=== PATIENT | female | born 1960 | race Caucasian/White ===

== ENCOUNTER 2023-05-02 10:27 | Outpatient (RCR) | payer MEDICARE, SELFPAY | END 2023-05-26 15:04 | disposition home or self-care (01) | LOC: PT 10:27 | PROVIDERS: PCP Family Medicine | DX: M76.31 Iliotibial band syndrome, right leg (principal); M17.11 Unilateral primary osteoarthritis, right knee; S83.281D Other tear of lateral meniscus, current injury, right knee, subsequent encounter; M25.561 Pain in right knee | CPT/HCPCS: 97035; 97110; 97140; 97161 ==

== ENCOUNTER 2023-06-19 10:51 | Outpatient (RCR) | payer MEDICARE, SELFPAY | END 2023-07-16 09:00 | disposition home or self-care (01) | LOC: PT 10:51 | PROVIDERS: PCP Family Medicine; Visit Provider Orthopaedic Surgery | DX: Z98.890 Other specified postprocedural states (principal) | CPT/HCPCS: 97110; 97112; 97116; 97140; 97161 ==

== ENCOUNTER 2023-09-29 12:55 | Emergency (ER) | payer MEDICARE, SELFPAY ==
[2023-09-29 13:02] VITALS: BP 153/74; PULSE 63; RESP 18; TEMP 36.5; O2SAT 100; BMI 22.7
--- NOTE | 2023-09-29 13:27 | ED_ITS ---
Documented by User: Ruthy Riri 09/29/23 14:10 HPI - General Adult General Chief complaint: Headache Stated complaint: HEADACHE Time Seen by Provider: 09/29/23 13:20 Source: patient Mode of arrival: walk-in Limitations: no limitations History of Present Illness HPI narrative: 63-year-old female presents with chief complaint of migraine headache. States she has had a history of headaches in the past. She has not had a migraine headache for over a year she states. She states she has pain and photophobia noted. Also complains of nausea vomiting. She has pain behind the right eye. She denies worst headache of her life sudden onset or thunderclap sensation. Patient does not appear toxic. She has no focal neurological deficits on initial exam Related Data Home Medications Medication Instructions Recorded Confirmed fluoxetine 40 mg capsule 40 mg PO DAILY 09/29/23 09/29/23 levothyroxine 50 mcg tablet 50 mcg PO DAILY 09/29/23 09/29/23 xvitql-cigjxlzf-lcxaixd cap PO DAILY 09/29/23 36,000-114,000-180,000 unit capsule,delay rel (Creon) Allergies Allergy/AdvReac Type Severity Reaction Status Date / Time No Known Drug Allergies Allergy Verified 09/29/23 13:02 Review of Systems ROS Narrative All Systems are negative except as noted/marked. Exam Narrative Exam Narrative: Nurses note and vital signs reviewed and patient is not hypoxic. General: The patient appears uncomfortable and in no apparent distress. Patient is resting comfortably on cart.wearing sunglasses due to photophobia Skin: Warm, dry, no pallor noted. There is no rash noted. Head: Normocephalic, atraumatic Eye: Normal conjunctiva, no drainage, EOMI. PERRL Ears, Nose, Mouth, and Throat: oral mucosa is moist. Nares patent. Mouth without vesicles. Ear canals patent. Tm's without Erythema Cardiovascular: Regular Rate and Rhythm Respiratory: Patient is in no distress, no accessory muscle use, lungs are clear to auscultation, no wheezing, rales or rhonchi Back: non-tender, no CVA tenderness bilaterally to percussion. GI: Normal bowel sounds, no tenderness to palpation, no masses appreciated. No rebound, guarding, or rigidity noted. Musculoskeletal: The patient has no evidence of calf tenderness, no pitting edema, symmetrical pulses noted bilaterally Neurological: A&O x4, normal speech Psychiatric: Cooperative Constitutional Vital Signs, click to edit/add: Last Vital Signs Temp 97.7 F 09/29/23 13:02 Pulse 63 09/29/23 13:02 Resp 18 09/29/23 13:02 BP 153/74 H 09/29/23 13:02 Pulse Ox 100 09/29/23 13:02 O2 Del Method Room Air 09/29/23 13:02 Course Vital Signs Vital signs: Vital Signs Temperature 97.7 F 09/29/23 13:02 Pulse Rate 63 09/29/23 13:02 Respiratory Rate 18 09/29/23 13:02 Blood Pressure 153/74 H 09/29/23 13:02 Pulse Oximetry 100 09/29/23 13:02 Oxygen Delivery Method Room Air 09/29/23 13:02 Temperature 97.7 F 09/29/23 13:02 Pulse Rate 63 09/29/23 13:02 Respiratory Rate 18 09/29/23 13:02 Blood Pressure 153/74 H 09/29/23 13:02 Pulse Oximetry 100 09/29/23 13:02 Oxygen Delivery Method Room Air 09/29/23 13:02 Medical Decision Making [facility] Narrative Medical decision making narrative: 63-year-old female presenting here with chief complaint migraine headache. Upon arrival she had IV established. Patient was given half a liter normal saline, Toradol, Decadron and Phenergan. Patient states she feels 100% better she feels comfortable going home.Normally takes ibuprofen at home for her headaches and she does not need any medications Differential Diagnosis Differential Diagnosis: headache, migraine Medical Records Medical records reviewed: Yes I reviewed the patient's medical records Lab Data Lab results reviewed: Yes I reviewed the patient's lab results Discharge Plan Discharge Stand Alone Forms: Portal Instructions Chief Complaint: Headache Clinical Impression: Migraine Patient Disposition: Home, Self-Care Time of Disposition Decision: 14:08 Condition: Good Prescriptions / Home Meds: No Action levothyroxine 50 mcg tablet 50 mcg PO DAILY Creon 36,000-114,000- 180,000 unit capsule,delayed release(DR/EC) PO DAILY fluoxetine 40 mg capsule 40 mg PO DAILY Instructions: Migraine Headache (ED) Referrals: Amina Viera MD [Primary Care Provider] - 1 week Discharge Date/Time: 09/29/23 14:18 Documented by User: Colton Donovan MD 09/29/23 17:16 HPI - General Adult General Chief complaint: Headache Stated complaint: HEADACHE Time Seen by Provider: 09/29/23 13:20 Related Data Home Medications Medication Instructions Recorded Confirmed fluoxetine 40 mg capsule 40 mg PO DAILY 09/29/23 09/29/23 levothyroxine 50 mcg tablet 50 mcg PO DAILY 09/29/23 09/29/23 bvfgiv-uzhnqlai-drgwlku cap PO DAILY 09/29/23 36,000-114,000-180,000 unit capsule,delay rel (Creon) Allergies Allergy/AdvReac Type Severity Reaction Status Date / Time No Known Drug Allergies Allergy Verified 09/29/23 13:02 Exam Constitutional Vital Signs, click to edit/add: Last Vital Signs Temp 97.7 F 09/29/23 13:02 Pulse 63 09/29/23 13:02 Resp 18 09/29/23 13:02 BP 153/74 H 09/29/23 13:02 Pulse Ox 100 09/29/23 13:02 O2 Del Method Room Air 09/29/23 13:02 Course Vital Signs Vital signs: Vital Signs Temperature 97.7 F 09/29/23 13:02 Pulse Rate 63 09/29/23 13:02 Respiratory Rate 18 09/29/23 13:02 Blood Pressure 153/74 H 09/29/23 13:02 Pulse Oximetry 100 09/29/23 13:02 Oxygen Delivery Method Room Air 09/29/23 13:02 Temperature 97.7 F 09/29/23 13:02 Pulse Rate 63 09/29/23 13:02 Respiratory Rate 18 09/29/23 13:02 Blood Pressure 153/74 H 09/29/23 13:02 Pulse Oximetry 100 09/29/23 13:02 Oxygen Delivery Method Room Air 09/29/23 13:02 Medical Decision Making MDM Narrative Medical decision making narrative: 63-year-old female presenting here with chief complaint migraine headache. Upon arrival she had IV established. Patient was given half a liter normal saline, Toradol, Decadron and Phenergan. Patient states she feels 100% better she feels comfortable going home.Normally takes ibuprofen at home for her headaches and she does not need any medications. I, Dr Donovan, have reviewed the above progress note and course of action in the ER; agree with the above. I have gone over history and physical, and discussed disposition and treatment plan with the patient. Patient's headache was not the worse headache of her life, not sudden onset, not thunderclap in nature. Discharge Plan Discharge Stand Alone Forms: Portal Instructions Chief Complaint: Headache Clinical Impression: Migraine Patient Disposition: Home, Self-Care Time of Disposition Decision: 14:08 Condition: Good Prescriptions / Home Meds: No Action levothyroxine 50 mcg tablet 50 mcg PO DAILY Creon 36,000-114,000- 180,000 unit capsule,delayed release(DR/EC) PO DAILY fluoxetine 40 mg capsule 40 mg PO DAILY Instructions: Migraine Headache (ED) Referrals: Amina Viera MD [Primary Care Provider] - 1 week Discharge Date/Time: 09/29/23 14:18
[2023-09-29] MEDS: DEXAMETHASONE SOD PHOS 10 MG/ML VIAL IV (13:37)
[2023-09-29] MEDS: 0.9 % SODIUM CHLORIDE 1,000 ML 1000 ML IV (13:37)
[2023-09-29] MEDS: KETOROLAC TROMETHAMINE 30 MG/ML VIAL IVP (13:38)
[2023-09-29] MEDS: PROMETHAZINE HCL 25 MG/ML VIAL 12.5 MG IV (13:38)
== END 2023-09-29 14:18 | disposition home or self-care (01) ==
PROVIDERS: Emergency Provider Emergency Medicine; PCP Family Medicine
DX: G43.909 Migraine, unspecified, not intractable, without status migrainosus (principal); Z79.899 Other long term (current) drug therapy; Z79.890 Hormone replacement therapy
CPT/HCPCS: 96374; 96375; 99284; J1100

== ENCOUNTER 2023-10-21 10:00 | Outpatient (OUT) | payer MEDICARE, SELFPAY ==
--- NOTE | 2023-10-21 | CT_ITS ---
The [address] [address] Patient Name: MARIA C ROSENBERG MRN: [id number] date: 1960 Sex: F Assigned Patient Location: CT Current Patient Location: Accession/Order Number: [id number] Exam Date: 10/21/2023 10:10 Report Date: 10/23/2023 05:49 At the request of: KEVIN SAAB Procedure: CT lung screening low-dose EXAMINATION: CT lung screening low-dose HISTORY: Nicotine dependent Z87.891 COMPARISON: History states prior studies, but no prior studies are presented for comparison. TECHNIQUE: Axial, Coronal, and Sagittal images were created without the administration of IV contrast material. Dose reduction techniques were achieved by using automated exposure control and/or adjustment of mA and/or kV according to patient size and/or use of iterative reconstruction technique. FINDINGS: LUNGS: 15 mm diameter is within plaque adjacent the posterior pleural surface of the right lower lobe superior segment. Mild/moderate emphysematous changes. PLEURA: No pleural effusion or pneumothorax. VASCULATURE: No abnormality. MALGORZATA: No mass or pathologic adenopathy. MEDIASTINUM: No mass or pathologic adenopathy. CARDIAC: Small pericardial effusion. AORTA: No aneurysm or dissection. CHEST WALL: No mass or axillary adenopathy BONES: Prior resection of left first rib. No bone fracture or lesion. LIMITED ABDOMEN: No suspicious findings. Limited images of the upper abdomen. OTHER: Negative. CT/CT lung screening low-dose IMPRESSION: 1. Lung-RADS 2- Benign Appearance or Behavior. Nodules with a very low likelihood of becoming a clinically active cancer due to size or lack of growth. Follow-up CT Chest in 1 year. Electronically authenticated by: BOYD POLLARD Date: 10/23/2023 05:49
[2023-10-21 12:09] LABS: Free T4 0.98 ng/dL (0.76-1.46)
[2023-10-21 12:12] LABS: Thyroid Stimulating Hormone 1.961 uIU/mL (0.358-3.740)
== END 2023-10-21 10:01 | disposition home or self-care (01) ==
LOC: CT 10:01
PROVIDERS: PCP Family Medicine; Visit Provider Family Medicine
DX: E03.9 Hypothyroidism, unspecified (principal); Z87.891 Personal history of nicotine dependence
CPT/HCPCS: 36415; 71271; 84439; 84443

== ENCOUNTER 2024-04-09 14:38 | Outpatient (OUT) | payer MEDICARE, SELFPAY ==
--- NOTE | 2024-04-09 14:50 | XR_ITS ---
The [place] [id number] Patient Name: MARIA C ROSENBERG MRN: [id number] date: 1960 Sex: F Assigned Patient Location: [facility] Current Patient Location: Accession/Order Number: [id number] Exam Date: 04/09/2024 15:00 Report Date: 04/11/2024 07:00 At the request of: KEVIN SAAB Procedure: XR lumbar spine 2-3V EXAMINATION: XR lumbar spine 2-3V HISTORY: Lumbar Back Pain COMPARISON: No relevant comparison available. FINDINGS: BONES: Moderate degenerative facet arthropathy L4-L5, L5-S1. Normal height and alignment of the vertebral bodies. DISC SPACES: Mild-moderate narrowing L5-S1. PARASPINOUS: Negative. No paraspinous abnormality is seen. OTHER: Negative. XR/XR lumbar spine 2-3V IMPRESSION: 1. L5-S1 mild to moderate degenerative disc disease and moderate degenerative facet arthropathy lower lumbar spine. Electronically authenticated by: BOYD POLLARD Date: 04/11/2024 07:00
--- NOTE | 2024-04-09 14:50 | XR_ITS ---
The [address] [address] Patient Name: MARIA C ROSENBERG MRN: [id number] date: 1960 Sex: F Assigned Patient Location: [facility] Current Patient Location: [facility] Accession/Order Number: [id number] Exam Date: 04/09/2024 15:00 Report Date: 04/12/2024 04:47 At the request of: KEVIN SAAB Procedure: XR knee RT 4V PROCEDURE: XR knee RT 4V HISTORY: Right Knee Pain COMPARISON: XR knee right 10/04/2022 FINDINGS: BONES:No fracture, dislocation, or significant joint space narrowing. Tiny degenerative osteophytes along the articular margins of patella and medial compartment. SOFT TISSUES:Suggestion of posterior soft tissue thickening/swelling posterior to the knee. EFFUSION:Small joint effusion. OTHER: Negative. XR/XR knee RT 4V IMPRESSION: 1. Small joint effusion and mild degenerative joint disease. 2. Suspect posterior soft tissue thickening/swelling. Possible Waters cyst. Consider MRI of knee for further evaluation. Electronically authenticated by: BOYD POLLARD Date: 04/12/2024 04:47
== END 2024-04-09 14:39 | disposition home or self-care (01) ==
LOC: RAD 14:39
PROVIDERS: PCP Family Medicine; Visit Provider Family Medicine
DX: M25.561 Pain in right knee (principal); M54.50 Low back pain, unspecified; M51.36 Other intervertebral disc degeneration, lumbar region; M47.816 Spondylosis without myelopathy or radiculopathy, lumbar region
CPT/HCPCS: 72100; 73564

== ENCOUNTER 2025-01-06 11:02 | Outpatient (OUT) | payer MEDICARE, SELFPAY ==
--- OUTSIDE RECORDS SUMMARY | 2025-01-06 11:08 | XMS_ITS | Clinical Summary ---
Author Organization [facility] Address [address] [place] [address] Care Team Providers Care Last Sorter Name Role Phone Unavailable Primary Care Provider Unavailabl e Social History Tobacco Use Types Packs/Day Years Used Date Smoking Tobacco: Never Assessed Comments Unknown Sex and Gender Information Value Date Recorded Sex Assigned at Not on file Legal Sex Female 6:50 PM EDT Gender Identity Not on file Sexual Orientation Not on file Plan of Treatment Not on file
[2025-01-06 11:49] LABS: Basophils Percent Auto 0.6 % (0.2-2.0); Eosinophils Absolute Auto 0.1 10^3/uL (0.0-0.7); Eosinophils Percent Auto 0.8 % (0.9-7.0); Hematocrit 40.7 % (36.0-48.0); Hemoglobin 13.6 g/dL (12.0-16.0); Immature Granulocytes Abs Auto 0.01 10^3/uL (0.00-0.03); Immature Granulocytes Pct Auto 0.2 % (0.0-0.5); Lymphocytes Absolute Auto 1.6 10^3/uL (1.2-3.8); Lymphocytes Percent Auto 26.1 % (20.5-60.0); Mean Corpuscular HGB Conc 33.4 g/dL (29.9-35.2); Mean Corpuscular Hemoglobin 29.7 pg (26.7-34.0); Mean Corpuscular Volume 88.9 fL (81.0-99.0); Mean Platelet Volume 10.8 fL (9.5-13.5); Monocytes Absolute Auto 0.7 10^3/uL (0.3-0.8); Monocytes Percent Auto 11.4 % (1.7-12.0); Neutrophils Absolute Auto 3.8 10^3/uL (1.4-6.5); Neutrophils Percent Auto 60.9 % (43.0-75.0); Platelet Count 259 10^3/uL (150-450); Red Blood Count 4.58 10^6/uL (4.20-5.40); Red Cell Distribution Width 13.5 % (11.0-15.0); White Blood Count 6.2 10^3/uL (4.0-11.0)
[2025-01-06 11:59] LABS: Alanine Aminotransferase 25 U/L (14-59); Albumin Globulin Ratio 1.2; Albumin Level 3.8 g/dL (3.4-5.0); Alkaline Phosphatase 53 U/L (46-116); Anion Gap 11.6; Aspartate Amino Transferase 20 U/L (15-37); Bilirubin Total 0.5 mg/dL (0.2-1.0); Calcium 9.2 mg/dL (8.5-10.1); Carbon Dioxide 29.5 mmol/L (21.0-32.0); Chloride 102 mmol/L (98-107); Chol HDL Ratio 2.3; Cholesterol 206 mg/dL (<=200); Estimated GFR (African America >60 (>=60 mL/min/1.73m^2); Estimated GFR (Non-African Ame >60 (>=60 mL/min/1.73m^2); Globulin 3.3 g/dL; Glucose 89 mg/dL (74-106); HDL Cholesterol 88 mg/dL (40-60); Potassium 4.1 mmol/L (3.5-5.1); Sodium 139 mmol/L (136-145); Thyroid Stimulating Hormone 0.811 uIU/mL (0.358-3.740); Total Protein 7.1 g/dL (6.4-8.2); Triglycerides 42 mg/dL (<=150); VLDL CHOLESTEROL 8.4 mg/dL
[2025-01-06 12:26] LABS: Free T4 1.04 ng/dL (0.76-1.46)
== END 2025-01-06 11:03 | disposition home or self-care (01) ==
LOC: LAB 11:04
PROVIDERS: PCP Family Medicine; Visit Provider Family Medicine
DX: Z00.00 Encounter for general adult medical examination without abnormal findings (principal); E03.9 Hypothyroidism, unspecified; K86.81 Exocrine pancreatic insufficiency
CPT/HCPCS: 36415; 80053; 80061; 84439; 84443; 85025